=== PATIENT | female | born 1990 | race African-American/Black ===

== ENCOUNTER 2019-07-18 21:27 | Emergency (ER) | payer MEDICAID, OTHER ==
[~2019-07-18] VITALS: Ht 157.5 cm; Wt 62.0 kg
[2019-07-18 22:09] VITALS: BP 102/70
== END 2019-07-19 06:46 | disposition left against medical advice (07) ==
LOC: ER 21:27
DX: Z53.21 Procedure and treatment not carried out due to patient leaving prior to being seen by health care provider (principal); R07.9 Chest pain, unspecified
CPT/HCPCS: 93005